=== PATIENT | female | born 1980 | race Caucasian/White ===

== ENCOUNTER 2021-04-03 03:18 | Emergency (ER) | payer OTHER ==
[~2021-04-03 03:18] MED LIST: NORCO 5-325 TA1 EACH PO; ZANTAC150 MG PO; ZYRTEC10 MG PO
== END 2021-04-03 05:00 | disposition home or self-care (01) ==
LOC: ER1 03:18
DX: A59.01 Trichomonal vulvovaginitis (principal); F17.200 Nicotine dependence, unspecified, uncomplicated
CPT/HCPCS: 81001; 84703; 87210; 96372; 99283; J0696

== ENCOUNTER 2021-05-04 07:13 | Emergency (ER) | payer OTHER ==
[2021-05-04 08:05] LABS: HEMOGLOBIN 15.3 gm/dl (12.3-15.3); RED BLOOD COUNT 4.98 M/UL (4.00-5.10); WHITE BLOOD COUNT 8.3 K/UL (4.5-11.0)
[2021-05-04 08:27] LABS: BUN/CREATININE RATIO 19 (0-10)
[2021-05-04] MEDS ORDERED: IBUPROFEN800 MG PO (13:04)
[2021-05-04] MEDS ORDERED: AUGMENTIN 875-1 EACH PO (13:04)
[2021-05-04] MEDS ORDERED: COLACE 100MG C100 MG PO (13:04)
[2021-05-04] MEDS ORDERED: BENTYL 10MG CAP10 MG PO (13:04)
== END 2021-05-04 13:15 | disposition home or self-care (01) ==
LOC: ER1 07:13
PROVIDERS: Emergency Medicine
DX: K57.30 Diverticulosis of large intestine without perforation or abscess without bleeding (principal); K59.00 Constipation, unspecified; F17.200 Nicotine dependence, unspecified, uncomplicated
CPT/HCPCS: 71045; 80053; 81001; 83605; 83690; 84703; 85025; 86140; 93005; 96374; 96375; 99284; J2270; J2405; Q9967

== ENCOUNTER 2021-06-16 23:30 | Emergency (ER) | payer OTHER ==
[~2021-06-16 23:30] MED LIST changes: +AUGMENTIN 875-1 EACH PO; +BENTYL 10MG CAP10 MG PO; +COLACE 100MG C100 MG PO; +IBUPROFEN800 MG PO
[2021-06-17] MEDS ORDERED: OMNICEF 300 MG300 MG PO (01:14)
[2021-06-19 20:11] LABS: CHLAMYDIA TRACHOMATIS, NAA Negative (Negative); NEISSERIA GONORRHOEAE, NAA Negative (Negative)
== END 2021-06-17 01:20 | disposition home or self-care (01) ==
LOC: ER1 23:30
PROVIDERS: Physician Assistant
DX: N39.0 Urinary tract infection, site not specified (principal); F17.210 Nicotine dependence, cigarettes, uncomplicated; Z90.89 Acquired absence of other organs
CPT/HCPCS: 81001; 84703; 87086; 87210; 99283

== ENCOUNTER 2021-06-24 02:36 | Emergency (ER) | payer OTHER ==
[~2021-06-24 02:36] MED LIST changes: +OMNICEF 300 MG300 MG PO
[2021-06-26 23:11] LABS: CHLAMYDIA TRACHOMATIS, NAA Negative (Negative); NEISSERIA GONORRHOEAE, NAA Negative (Negative)
== END 2021-06-24 04:20 | disposition home or self-care (01) ==
LOC: ER1 02:36
PROVIDERS: Emergency Medicine
DX: A59.01 Trichomonal vulvovaginitis (principal); F17.200 Nicotine dependence, unspecified, uncomplicated
CPT/HCPCS: 81001; 84703; 87086; 87210; 99284